=== PATIENT | female | born 1970 | race Caucasian/White ===

== ENCOUNTER 2017-01-27 13:36 | Emergency (ER) | payer OTHER ==
[2017-01-27 15:29] LABS: BUN/CREATININE RATIO 19 (0-10); HEMOGLOBIN 9.1 gm/dl (12.3-15.3); RED BLOOD COUNT 4.61 M/UL (4.00-5.10); WHITE BLOOD COUNT 13.3 K/UL (4.5-11.0)
== END 2017-01-27 16:10 | disposition home or self-care (01) ==
LOC: ER1 13:36
PROVIDERS: Physician Assistant
DX: D64.9 Anemia, unspecified (principal); B37.2 Candidiasis of skin and nail; I10 Essential (primary) hypertension; F17.200 Nicotine dependence, unspecified, uncomplicated; Z88.5 Allergy status to narcotic agent; Z88.8 Allergy status to other drugs, medicaments and biological substances; Z79.899 Other long term (current) drug therapy
CPT/HCPCS: 36415; 80053; 85025; 99283